=== PATIENT | female | born 1985 | race Caucasian/White ===

== ENCOUNTER 2017-12-19 19:05 | Inpatient (IN) | payer SELFPAY ==
[~2017-12-19] VITALS: Ht 165.1 cm; Wt 68.8 kg
[~2017-12-19 19:05] MED LIST: BUPR100CR PO; LITH300T PO; QUET1TAB8 PO
[2017-12-19 19:11] VITALS: BP 153/88; PULSE 86; RESP 20; TEMP 98.1; O2SAT 100
[2017-12-19] MEDS ORDERED: LORazepam 2 MG/ML VIAL - age > 65 yrs IM PRN (20:15)
[2017-12-19] MEDS ORDERED: LORazepam 0.5 MG TAB age > 65 yrs PO PRN (20:15)
[2017-12-19] MEDS ORDERED: ALUMINUM/MAGNESIUM/SIMETH 30 ML CUP PO PRN (20:15)
[2017-12-19] MEDS ORDERED: MAGNESIUM HYDROXIDE SUSP 30 ML CUP PO PRN (20:15)
[2017-12-19] MEDS ORDERED: ACETAMINOPHEN 325 MG TAB PO PRN (20:15)
[2017-12-19] MEDS: REMOVE OLD NICOTINE PATCH T-DERMAL SCH (21:00)
[2017-12-19] MEDS ORDERED: QUEtiapine FUMARATE 25 MG TAB PO SCH (21:00)
[2017-12-19] MEDS: LITHIUM CARBONATE 300 MG TAB PO SCH (21:26)
[2017-12-20 05:42] VITALS: BP 137/76; PULSE 118; RESP 16; TEMP 98.5; O2SAT 99
[2017-12-20] MEDS: NICOTINE 21 MG/24 HR PATCH T-DERMAL SCH (07:36)
--- NOTE | 2017-12-20 08:32 | HHI.HP ---
Provisional Diagnosis Admission Date Dec 19, 2017 at 19:05 [place] I. Bipolar disorder, polysubstance use disorder Certification of Person's Competence To Provide Express and Informed Consent I have personally examined Chiqui Sanon , a person being served at [facility] on, Dec 20, 2017 08:24. Express and informed consent means consent voluntarily given in writing, by a competent person, after sufficient explanation and disclosure of the subject matter involved to enable the person to make a knowing and willful decision without any element of force, fraud, deceit, duress, or other form of constraint or coercion. This person is 18 years of age or older, is not now known to be incompetent to consent to treatment with a guardian advocate, and does not have a health care surrogate or proxy currently making medical treatment decisions. I have found this person to be one of the following: [] Competent to provide express and informed consent, as defined above, for voluntary admission to this facility and is competent to provide express and informed consent for treatment. He/she has the consistent capacity to make well reasoned, willful, and knowing decisions concerning his or her medical or mental health treatment. The person fully and consistently understands the purpose of the admission for examination/placement and is fully capable of personally exercising all rights assured [place]xxx] Incompetent to provide express and informed consent to voluntary admission , and this is incompetent to provide express and informed consent to treatment. The person must be transferred to involuntary status and a petition for a guardian advocate filed with the Circuit Court. [] Refusing to provide express and informed consent to voluntary admission but is competent to provide express and informed consent for treatment. The person must be discharged or transferred to involuntary status. Form shall be completed within 24 hours of a person's arrival at the receiving facility and filed in the clinical record of each person: 1. Admitted on a voluntary basis 2. Permitted to provide express and informed consent to his/her own treatment 3. Allowed to transfer from involuntary to voluntary status 4. Prior to permitting a person to consent to his or her own treatment after having been previously found incompetent to consent to treatment. History of Present Illness Capacity: Has Capacity HPI 12/19/17 - Patient is a woman currently under alias name S patient was admitted without identification but real name is Prieto Carrasco, who is , domiciled with boyfriend, has 4 children who live with the father of the children, unemployed, with a past psychiatric history of bipolar disorder and depression, one previous psychiatric admission, no previous suicide attempts , one episode of self-injurious behavior via cutting years ago, no current outpatient mental health provider but was currently taking lithium and quetiapine, with the substance use history significant for alcohol use disorder who was admitted to the medical floor after patient was found by boyfriend who he believed had a seizure in the context of alcohol intoxication and ingestion of multiple drugs which psychiatry was consulted for evaluation for possible suicide attempt via overdose. As per chart patient had come to [facility] with boyfriend for vacation which apparently the patient had taken drugs from housemates was therefore removed from the house and placed in a hotel which pointed later found her heavily sedated and brought her to the ED which he suspected may have had seizures in the context of ingestion of multiple medications including Lamictal, Xanax and Narco along with ingestion of alcohol. Collateral formation by medical team reported that mother stated patient takes large amounts of alcohol and drugs when she is depressed and patient is originally from [place] where her mother currently resides. Patient was found lying hospital bed noted be guarded, superficially cooperative , not want to elaborate on answers to questions. Patient states she came from vacation and states that she did not recall what happened prior to her admission only that she felt dizzy and had her boyfriend had brought to the hospital. Patient states the last thing she recalls was being at the home where she was vacationing at and having a few beers. Patient states she feels horrible that she had gone through this but denies any recently sad or depressed , denying recent event as being a suicide attempt although patient states that she does not recall what happened that evening. Patient reports for the past couple of weeks no changes sleep, appetite, energy or concentration denies feeling depressed recently. Patient reports having had prior manic episode 6 years ago but denied any hospitalization. Patient at this time denies SI, HI, AVH or delusions. Collateral information obtained by patient's mother Alejandro Cramer ([phone]), stated that she was made aware that the patient had taken alcohol and took someone else's medications. She also mentions the patient has a prior diagnosis of bipolar disorder and takes medications which include lithium and quetiapine but has not been taking them recently. She also mentions the patient had no prior hospitalizations 2 years ago with a 4 day duration also within the context of substance use but denies patient having had previous suicide attempts in the past. She expresses concern that the patient has an addiction problem and that the patient recently had spoken to her relying being ready to engage in treatment for her addiction. Past psychiatric history: Patient reports previous psychiatric diagnosis of bipolar disorder, depression, no previous psychiatric admissions of a collateral history from other reported patient had one previous psychiatric admission 2 years ago, denies previous suicide attempt, reports 1 episode of self cutting behavior years ago. Patient denies having acute any current outpatient mental health provider last time was 1 year ago and states that she was previously on lithium and Seroquel as well as previous medication trials include trazodone and Wellbutrin but states she last took medications weeks ago. She mentions that she also had stopped her medications because she no longer had insurance and was not able to obtain them. Substance use history: Patient reports alcohol use 4-5 times a week usually 3 or 4 beers at a time, denies any other substance use although patient was positive for amphetamines and opiates but patient denies having any recollection of taking any of those drugs. Patient denies any history of rehabilitation programs. Past medical history: Patient reports having had seizures in the past related to her alcohol use, denies any other medical history. Allergies: Zofran Social history: , domiciled with boyfriend, has 4 children who live with the father of the children, unemployed, highest education is high school degree, denies any legal history, denies any axis to firearms or background. Patient's mother lives in [place] and her father is in [place]. Collateral contact information: mother Alejandro Cramer ([phone]), Perry Fry (father) - [phone], Sebastien (boyfriend) - [phone]. 12/20/17 - Patient found sitting on hospital bed, calm and cooperative, continues to be noted to be guarded and minimizing recent events and degree of substance use but recognizes alcohol abuse. Patient reports sleeping well, appetite improving, and mood is "good". Patient denies SI, HI, AVH or delusions. Patient continues to contemplate engaging in rehabilitation program for substance use but plans on finding a place back in [place]. Past Family Social History Coded Allergies: ondansetron (Verified Allergy, Unknown, unknown, 12/18/17) Reported Medications [place] Carbonate ER ([place] Carbonate ER) 300 Mg Tab, 300 MG PO BID, TAB 0 Refills 12/19/17 Discontinued Reported Medications Bupropion HCl ER 12 HR (Wellbutrin SR 12 HR) 100 Mg Tab, 100 MG PO Q12HR for Control Depression, TAB 0 Refills 12/19/17 Quetiapine (Quetiapine) 100 Mg Tab, 100 MG PO HS, #30 TAB 0 Refills 12/19/17 Current Medications Medications (Trade) Dose Ordered Sig/Brittany Route Start Time Stop Time Status Last Admin (Ativan) 0.5 mg Q12H PRN PO 12/19/17 20:15 (Ativan Inj) 0.5 mg Q12H PRN IM 12/19/17 20:15 (Tylenol) 650 mg Q4H PRN PO 12/19/17 20:15 (Milk Of Magnesia Liq) 30 ml DAILY PRN PO 12/19/17 20:15 (Mag-Al Plus Susp Liq) 30 ml Q6H PRN PO 12/19/17 20:15 (Habitrol 21 Mg Patch.24 Hr) 1 patch DAILY T-DERMAL 12/20/17 09:00 Miscellaneous Information 1 HS T-DERMAL 12/19/17 21:00 (SEROquel) 50 mg HS PO 12/19/17 21:00 12/19/17 21:27 (Lithotabs) 300 mg BID PO 12/19/17 21:00 12/19/17 21:26 Physical Exam Patient not noted to be in acute distress, no gross motor abnormalities, no tremor or EPS, no psychomotor agitation or retardation. Vital Signs Vital Signs Date Time Temp Pulse Resp B/P (MAP) Pulse Ox O2 Delivery O2 Flow Rate FiO2 12/20/17 05:42 98.5 118 16 137/76 (96) 99 Lab Results Test 12/20/17 07:36 Mental Status Examination Appearance: Disheveled Consciousness: Alert Orientation: x4 Motor Activity: Normal gait Speech: Unremarkable Language: Adequate Fund of Knowledge: Inadequate Attention and Concentration: Adequate Memory: Impaired (surrounding recent events) Mood: Other ("good") Affect: Blunt Thought Process & Associations: Intact, Linear Thought Content: Appropriate Hallucination Type: None Delusion Type: None Suicidal Ideation: Yes (denies today) Suicidal Plan: No Suicidal Intention: No Homicidal Ideation: No Homicidal Plan: No Homicidal Intention: No Insight: Poor Judgment: Impulsive Assessment & Plan Problem List: (1) Bipolar disorder ICD Codes: F31.9 - Bipolar disorder, unspecified (2) Polysubstance abuse ICD Codes: F19.10 - Other psychoactive substance abuse, uncomplicated Assessment & Plan Estimated LOS: 3-5 days. Patient is a woman who carries a diagnosis of bipolar disorder with depression, one previous psychiatric admission, no previous suicide attempt one remote episode of cutting behavior, with substance use history significant for alcohol use disorder, recent polysubstance use and alcohol intoxication along with ingestion of multiple medications which patient was admitted to the medical floor for stabilization with continued concern for patient possible suicide attempt via overdose which patient will be transferred to the inpatient psychiatry unit for further evaluation and management. Patient to continue 300 mg p.o. twice daily for mood stabilization and quetiapine increased to 100 mg p.o. at bedtime with upward titration as needed. Social work evaluation for psychosocial assessment. Continue to monitor mood and behavior. Petition for involuntary admission started, second opinion requested. Discharge planning in progress. Discharge Planning To be determined Blaine Felipe MD Dec 20, 2017 08:32
[2017-12-20] MEDS ORDERED: traZODone HCL 50 MG TAB PO PRN (09:00)
[2017-12-20 09:05] LABS: BICARBONATE 22.1 MEQ/L (21.0-32.0); BLOOD UREA NITROGEN 10 MG/DL (7-18); CALCIUM 9.3 MG/DL (8.5-10.1); CHLORIDE 106 MEQ/L (98-107); CHOLESTEROL 238 MG/DL (120-200); CHOLESTEROL/ HDL RATIO 3.21 RATIO; CREATININE 0.65 MG/DL (0.50-1.00); GLOMERULAR FILTRATION RATE 79 ML/MIN (>89); GLUCOSE,RANDOM 70 MG/DL (74-106); LDL CHOLESTEROL 139 MG/DL (0-99); SODIUM (NA) 140 MEQ/L (136-145); TRIGLYCERIDES 124 MG/DL (42-150)
[2017-12-20] MEDS: LITHIUM CARBONATE 300 MG TAB PO SCH ×2 (09:35→22:24)
[2017-12-20 12:43] LABS: HEMOGLOBIN A1C 5.2 % (4.3-6.0)
[2017-12-20 18:20] VITALS: BP 139/91; PULSE 115; RESP 18; TEMP 98.6; O2SAT 99
[2017-12-20] MEDS: REMOVE OLD NICOTINE PATCH T-DERMAL SCH (21:00)
[2017-12-20] MEDS: QUEtiapine FUMARATE 100 MG TAB PO SCH (22:24)
[2017-12-21 06:18] VITALS: BP 122/58; PULSE 104; RESP 16; TEMP 98.1; O2SAT 99
--- NOTE | 2017-12-21 10:25 | PD.PSY.CON ---
Provisional Diagnosis Admission Date Dec 19, 2017 at 19:05 [place] I. Bipolar disorder, polysubstance use disorder History of Present Illness Service Psychiatry Consult Requested By Dr. Felipe Reason for Consult Second opinion Primary Care Physician No Primary Care Physician [facility] 12/19/17 - Patient is a woman currently under alias name S patient was admitted without identification but real name is Prieto Carrasco, who is , domiciled with boyfriend, has 4 children who live with the father of the children, unemployed, with a past psychiatric history of bipolar disorder and depression, one previous psychiatric admission, no previous suicide attempts , one episode of self-injurious behavior via cutting years ago, no current outpatient mental health provider but was currently taking lithium and quetiapine, with the substance use history significant for alcohol use disorder who was admitted to the medical floor after patient was found by boyfriend who he believed had a seizure in the context of alcohol intoxication and ingestion of multiple drugs which psychiatry was consulted for evaluation for possible suicide attempt via overdose. As per chart patient had come to [facility] with boyfriend for vacation which apparently the patient had taken drugs from housemates was therefore removed from the house and placed in a hotel which pointed later found her heavily sedated and brought her to the ED which he suspected may have had seizures in the context of ingestion of multiple medications including Lamictal, Xanax and Narco along with ingestion of alcohol. Collateral formation by medical team reported that mother stated patient takes large amounts of alcohol and drugs when she is depressed and patient is originally from [place] where her mother currently resides. Patient was found lying hospital bed noted be guarded, superficially cooperative , not want to elaborate on answers to questions. Patient states she came from vacation and states that she did not recall what happened prior to her admission only that she felt dizzy and had her boyfriend had brought to the hospital. Patient states the last thing she recalls was being at the home where she was vacationing at and having a few beers. Patient states she feels horrible that she had gone through this but denies any recently sad or depressed , denying recent event as being a suicide attempt although patient states that she does not recall what happened that evening. Patient reports for the past couple of weeks no changes sleep, appetite, energy or concentration denies feeling depressed recently. Patient reports having had prior manic episode 6 years ago but denied any hospitalization. Patient at this time denies SI, HI, AVH or delusions. The patient is an around 30 year-old [place] woman, domiciled in [place] with her boyfriend, here in [facility] with her boyfriend, mother of 4 kids, employed as a front office medical assistant, with psychiatric history of depression, self cutting behavior, no previous psychiatric hospitalization, no previous suicide attempts, she is not in psychotropics, Xanax and [place] abuse, no significant medical history, who was admitted in the psychiatric unit after an overdose. Patient was consulted for second opinion. On psychiatric evaluation today the patient reports feeling much better. Patient states that while on vacation she used several "pills of Xanax and [place]" just to get high. Patient denies suicidal or homicidal ideation, she denies visual and auditory hallucinations. She seems to minimize her recent suicidal attempt. Patient is fully oriented 3. Review of Systems Constitutional: DENIES: Diaphoretic episodes, Fatigue, Fever, Weight gain, Weight loss, Chills, Dizziness, Change in appetite, Night Sweats Endocrine: DENIES: Abnorml menstrual pattern, Heat/cold intolerance, Polydipsia , Polyuria, Polyphagia Eyes: DENIES: Blurred vision, Diplopia, Eye inflammation, Eye pain, Vision loss , Photosensitivity, Double Vision Ears, nose, mouth, throat: DENIES: Tinnitus, Hearing loss, Vertigo, Nasal discharge, Oral lesions, Throat pain, Hoarseness, Ear Pain, Running Nose, Epistaxis, Sinus Pain, Toothache, Odynophagia Respiratory: DENIES: Apneas, Cough, Snoring, Wheezing, Hemoptysis, Sputum production, Shortness of breath Cardiovascular: DENIES: Chest pain, Palpitations, Syncope, Dyspnea on Exertion , PND, Lower Extremity Edema, Orthopnea, Claudication Gastrointestinal: DENIES: Abdominal pain, Black stools, Bloody stools, Constipation, Diarrhea, Nausea, Vomiting, Difficulty Swallowing, Anorexia Genitourinary: DENIES: Abnormal vaginal bleeding, Dysmenorrhea, Dyspareunia, Sexual dysfunction, Urinary frequency, Urinary incontinence, Urgency, Hematuria , Dysuria, Nocturia, Vaginal discharge Musculoskeletal: DENIES: Joint pain, Muscle aches, Stiffness, Joint Swelling, Back pain, Neck pain Integumentary: DENIES: Abnormal pigmentation, Pruritus, Rash, Nail changes, Breast masses, Breast skin changes, Nipple discharge Hematologic/lymphatic: DENIES: Bruising, Lymphadenopathy Immunologic/allergic: DENIES: Eczema, Urticaria Psychiatric: DENIES: Anxiety, Confusion, Mood changes, Depression, Hallucinations, Agitation, Suicidal Ideation, Homicidal Ideation, Delusions Past Family Social History Coded Allergies: ondansetron (Verified Allergy, Unknown, unknown, 12/18/17) Reported Medications [place] Carbonate ER ([place] Carbonate ER) 300 Mg Tab, 300 MG PO BID, TAB 0 Refills 12/19/17 Discontinued Reported Medications Bupropion HCl ER 12 HR (Wellbutrin SR 12 HR) 100 Mg Tab, 100 MG PO Q12HR for Control Depression, TAB 0 Refills 12/19/17 Quetiapine (Quetiapine) 100 Mg Tab, 100 MG PO HS, #30 TAB 0 Refills 12/19/17 Current Medications Medications (Trade) Dose Ordered Sig/Brittany Route Start Time Stop Time Status Last Admin (Ativan) 0.5 mg Q12H PRN PO 12/19/17 20:15 (Ativan Inj) 0.5 mg Q12H PRN IM 12/19/17 20:15 (Tylenol) 650 mg Q4H PRN PO 12/19/17 20:15 (Milk Of Magnesia Liq) 30 ml DAILY PRN PO 12/19/17 20:15 (Mag-Al Plus Susp Liq) 30 ml Q6H PRN PO 12/19/17 20:15 (Habitrol 21 Mg Patch.24 Hr) 1 patch DAILY T-DERMAL 12/20/17 09:00 Miscellaneous Information 1 HS T-DERMAL 12/19/17 21:00 (Lithotabs) 300 mg BID PO 12/19/17 21:00 12/20/17 22:24 (SEROquel) 100 mg HS PO 12/20/17 21:00 12/20/17 22:24 (Desyrel) 50 mg HS PRN PO 12/20/17 09:00 Family Psych History No family psychiatric history Social History Patient was born in [place], she lives in [place] with her 4 kids and her boyfriend, she works as a front office medical assistant, her highest level of education is high school Patient's Strengths (min. 2) Family support Physical Exam Vital Signs Vital Signs Date Time Temp Pulse Resp B/P (MAP) Pulse Ox O2 Delivery O2 Flow Rate FiO2 12/21/17 06:18 98.1 104 16 122/58 (79) 99 I/O 12/21/17 12/21/17 12/22/17 08:00 16:00 00:00 Intake Total 240 ml Balance 240 ml Mental Status Examination Appearance: Disheveled Consciousness: Alert Orientation: x4 Motor Activity: Normal gait Speech: Unremarkable Language: Adequate Fund of Knowledge: Inadequate Attention and Concentration: Adequate Memory: Impaired (surrounding recent events) Mood: Other ("good") Affect: Blunt Thought Process & Associations: Intact, Linear Thought Content: Appropriate Hallucination Type: None Delusion Type: None Suicidal Ideation: Yes (denies today) Suicidal Plan: No Suicidal Intention: No Homicidal Ideation: No Homicidal Plan: No Homicidal Intention: No Insight: Poor Judgment: Impulsive Assessment & Plan Problem List: (1) Bipolar disorder ICD Codes: F31.9 - Bipolar disorder, unspecified (2) Polysubstance abuse ICD Codes: F19.10 - Other psychoactive substance abuse, uncomplicated Assessment & Plan: I have seen and examined this patient, reviewed documentation, discussed the case with Dr. Felipe, I agree and concur with his assessment and plan Assessment & Plan Estimated LOS: Alexandro Bowling MD Dec 21, 2017 10:25
[2017-12-21] MEDS: LITHIUM CARBONATE 300 MG TAB PO SCH ×2 (10:26→20:20)
[2017-12-21] MEDS: NICOTINE 21 MG/24 HR PATCH T-DERMAL SCH (10:27)
[2017-12-21] MEDS ORDERED: QUET1TAB8 PO (13:16)
[2017-12-21] MEDS ORDERED: LITH300T3 PO (13:16)
--- NOTE | 2017-12-21 13:17 | HHI.DS ---
Psychiatry Discharge Summary Inpatient Psychiatric care?: Yes Advance Directive: No Reason Not Provided: declined Mental Health AdvanceDirective: No Health Care Proxy: No Admission Admission Date Dec 19, 2017 at 19:05 Admission Diagnosis: (1) Bipolar disorder ICD Code: F31.9 - Bipolar disorder, unspecified (2) Polysubstance abuse ICD Code: F19.10 - Other psychoactive substance abuse, uncomplicated Brief History 12/19/17 - Patient is a woman currently under alias name S patient was admitted without identification but real name is Prieto Carrasco, who is , domiciled with boyfriend, has 4 children who live with the father of the children, unemployed, with a past psychiatric history of bipolar disorder and depression, one previous psychiatric admission, no previous suicide attempts , one episode of self-injurious behavior via cutting years ago, no current outpatient mental health provider but was currently taking lithium and quetiapine, with the substance use history significant for alcohol use disorder who was admitted to the medical floor after patient was found by boyfriend who he believed had a seizure in the context of alcohol intoxication and ingestion of multiple drugs which psychiatry was consulted for evaluation for possible suicide attempt via overdose. As per chart patient had come to [facility] with boyfriend for vacation which apparently the patient had taken drugs from housemates was therefore removed from the house and placed in a hotel which pointed later found her heavily sedated and brought her to the ED which he suspected may have had seizures in the context of ingestion of multiple medications including Lamictal, Xanax and Narco along with ingestion of alcohol. Collateral formation by medical team reported that mother stated patient takes large amounts of alcohol and drugs when she is depressed and patient is originally from [place] where her mother currently resides. Patient was found lying hospital bed noted be guarded, superficially cooperative , not want to elaborate on answers to questions. Patient states she came from vacation and states that she did not recall what happened prior to her admission only that she felt dizzy and had her boyfriend had brought to the hospital. Patient states the last thing she recalls was being at the home where she was vacationing at and having a few beers. Patient states she feels horrible that she had gone through this but denies any recently sad or depressed , denying recent event as being a suicide attempt although patient states that she does not recall what happened that evening. Patient reports for the past couple of weeks no changes sleep, appetite, energy or concentration denies feeling depressed recently. Patient reports having had prior manic episode 6 years ago but denied any hospitalization. Patient at this time denies SI, HI, AVH or delusions. The patient is an around 30 year-old [place] woman, domiciled in [place] with her boyfriend, here in [facility] with her boyfriend, mother of 4 kids, employed as a manager of medical, with psychiatric history of depression, self cutting behavior, no previous psychiatric hospitalization, no previous suicide attempts, she is not in psychotropics, Xanax and [place] abuse, no significant medical history, who was admitted in the psychiatric unit after an overdose. Patient was consulted for second opinion. On psychiatric evaluation today the patient reports feeling much better. Patient states that while on vacation she used several "pills of Xanax and [place]" just to get high. Patient denies suicidal or homicidal ideation, she denies visual and auditory hallucinations. She seems to minimize her recent suicidal attempt. Patient is fully oriented 3. Tobacco Use In Past 30 Days: No Tobacco Past 30 Days Alcohol Use: 4 or More Times Per Week Hospital Course Patient is a woman currently under alias name, patient was admitted without identification but real name is Prieto Carrasco, who is , domiciled with boyfriend, has 4 children who live with the father of the children, unemployed, with a past psychiatric history of bipolar disorder and depression, one previous psychiatric admission, no previous suicide attempts, one episode of self-injurious behavior via cutting years ago, no current outpatient mental health provider but was currently taking lithium and quetiapine, with the substance use history significant for alcohol use disorder who was admitted to the medical floor after patient was found by boyfriend who he believed had a seizure in the context of alcohol intoxication and ingestion of multiple drugs which psychiatry was consulted for evaluation for possible suicide attempt via overdose and was transferred to the inpatient psychiatry for further evaluation and management. Patient re-started on lithium 300mg PO BID and quetiapine 100mg PO HS which she tolerated well with no notable adverse drug reactions. Patient was noted to have denied having any suicidal ideation nor attempt, minimizing recent overdose and minimizing degree of substance use. She was observed by staff to not have had any behavioral disturbances, not having made any suicidal or homicidal statements and maintained stable mood through admission and was noted to interact with staff adequately. Collateral information from family reported being supportive and willing to help patient get connected with mental health services upon her return back to [place]. Patient reported feeling future oriented and motivated to re-engage in work and consider engaging in rehabilitation program for substance use. Upon discharge patient stated that she was feeling good, reported well with the treatment, as well as motivation to continue recommendations and denied any SI, HI, perceptual disturbances or delusions. Weighing the acute, chronic, and protective factors and based on the available evidence, I canal boat captain to a reasonable degree of medical certainty that the patient is at low imminent risk of harm to self or others from a mental illness as defined under the Elliott act and her level of function is adequate as observed on the unit for planned level of outpatient care. She was counseled regarding warning signs for need to return to the psychiatric emergency room as part of a general safety plan. Patient advised to call 911 or go nearest ED in case of emergency. Patient agreed with plan. Results Blood Pressure 122 / 58 Vital Signs Date Time Temp Pulse Resp B/P (MAP) Pulse Ox O2 Delivery O2 Flow Rate FiO2 12/21/17 06:18 98.1 104 16 122/58 (79) 99 Laboratory Tests Test 12/20/17 07:36 Random Glucose 70 MG/DL (74-106) Estimat Glomerular Filtration Rate 79 ML/MIN (>89) Cholesterol Level 238 MG/DL (120-200) LDL Cholesterol 139 MG/DL (0-99) HDL Cholesterol 74.0 MG/DL (40.0-60.0) Laboratory Results Test 12/20/17 07:36 Cholesterol Level 238 MG/DL (120-200) HDL Cholesterol 74.0 MG/DL (40.0-60.0) Hemoglobin A1c 5.2 % (4.3-6.0) LDL Cholesterol 139 MG/DL (0-99) Triglycerides Level 124 MG/DL (42-150) Summary of Procedures none Pending results at discharge: No Medications # of Antipsychotic meds at D/C: 1 Approp Antipsych med options 1 - Minimum of three failed multiple trials of monotherapy. 2 - Documented plan to taper to monotherapy due to previous use of multiple meds OR cross-taper in progress at D/C. 3 - Documentation of augmentation of Clozapine. 4 - Justification other than those listed in allowable values 1-3, document here : Discharge Discharge Date: Dec 21, 2017 Discharge Diagnosis: (1) Bipolar disorder ICD Code: F31.9 - Bipolar disorder, unspecified (2) Polysubstance abuse ICD Code: F19.10 - Other psychoactive substance abuse, uncomplicated Pt Condition on Discharge: Stable Discharge Disposition: Discharge Home Discharge Instructions Diet Instructions: As Tolerated, No Restrictions Activities you can perform: Regular-No Restrictions Scheduled Appointment: John Islas Appointment Date: Dec 29, 2017 Appointment Time: 11:00am Discharge Time > 30 minutes Mental Status Examination Appearance: Appropriate Consciousness: Alert Orientation: x4 Motor Activity: Normal gait Speech: Unremarkable Language: Adequate Fund of Knowledge: Inadequate Attention and Concentration: Adequate Memory: Impaired (surrounding recent events) Mood: Appropriate Affect: Appropriate Thought Process & Associations: Intact, Goal directed, Linear Thought Content: Appropriate Hallucination Type: None Delusion Type: None Suicidal Ideation: No (denies today) Suicidal Plan: No Suicidal Intention: No Homicidal Ideation: No Homicidal Plan: No Homicidal Intention: No Insight: Fair Judgment: Impulsive Discharge/Advance Care Plan Health Problems: (1) Bipolar disorder (2) Polysubstance abuse Goals to promote your health * To prevent worsening of your condition and complications * To maintain your health at the optimal level Directions to meet your goals Take your medications as prescribed Follow your dietary instruction Follow activity as directed Keep your appointments as scheduled Take your immunizations and boosters as scheduled If your symptoms worsen call your PCP, if no PCP go to Urgent Care Center or Emergency Room For 06/04 questions related to your inpatient stay or results of tests pending at discharge, please contact Dr. Blaine Felipe at Smoking is Dangerous to Your Health. Avoid second hand smoking Blaine Felipe MD Dec 21, 2017 13:16
--- NOTE | 2017-12-21 15:16 | EKG ---
Date Performed: 12/20/2017 Time Performed: 12:21:51 PTAGE: 89 years EKG: Sinus rhythm Since the previous tracing, no significant change noted NORMAL ECG PREVIOUS TRACING : 12/18/2017 14.56 DOCTOR: Kay Braden Interpretating Date/Time 12/21/2017 15:11:30
[2017-12-21] MEDS: QUEtiapine FUMARATE 100 MG TAB PO SCH (20:20)
[2017-12-21] MEDS: REMOVE OLD NICOTINE PATCH T-DERMAL SCH (20:33)
== END 2017-12-21 21:00 | disposition home or self-care (01) | DRG 885 ==
LOC: H260 19:05 → EDBD 19:05 → H260 12-20 11:00
PROVIDERS: ADMIT Student in an Organized Health Care Education/Training Program; ATTEND Student in an Organized Health Care Education/Training Program
DX: F31.9 Bipolar disorder, unspecified (principal); F19.10 Other psychoactive substance abuse, uncomplicated; F10.10 Alcohol abuse, uncomplicated; Z91.5 Personal history of self-harm
CPT/HCPCS: 80048; 80061; 83036; 93005